=== PATIENT | male | born 1975 | race African-American/Black ===

== ENCOUNTER 2016-09-02 04:21 | Emergency (ER) | payer OTHER ==
[~2016-09-02] VITALS: Ht 182.9 cm; Wt 97.5 kg
[~2016-09-02 04:21] MED LIST: FLEXERIL10 MG PO; MOTRIN800 MG PO
--- NOTE | 2016-09-02 04:40 | ED CARDIAC/CP/PALPITATIONS ---
History of Present Illness General Chief Complaint: Chest Pain Stated Complaint: CHEST PAIN Source: patient Exam Limitations: no limitations Vital Signs & Intake/Output Vital Signs & Intake/Output Vital Signs Date Time Temp Pulse Resp B/P B/P Pulse O2 O2 Flow FiO2 Mean Ox Delivery Rate 09/02 0958 98.0 70 20 133/88 97 Room Air 09/02 0736 97.1 70 20 134/87 96 Room Air 09/02 0435 98 Room Air 09/02 0434 96.5 75 18 150/96 98 Room Air Allergies Coded Allergies: No Known Allergies (09/02/16) Reconcile Medications No Known Home Medications Triage Note: to er 10 with c/o sharp chest pain on and off for 2 days, no other sx monitor sr Triage Nurses Notes Reviewed? yes HPI: Patient presents to the emergency room with intermittent substernal chest heaviness for the past and a half. Patient states the pain will come and last 5 -10 minutes and then go away on its own. There is no radiation. While he has the pain he rates it as a 6 out of 10 and then it goes away and it goes down to a 0 out of 10. There is no shortness of breath. There is no nausea or vomiting. There is no diaphoresis. There are no aggravating or mitigating factors. Patient had the pain again tonight so he comes in for evaluation. (NIMCO BLACKWELL,ELOINA Silvestre) Past History Travel History Traveled to [place] past 21 day No Medical History Any Pertinent Medical History? none Neurological: NONE EENT: NONE Cardiovascular: NONE Respiratory: NONE Gastrointestinal: NONE Hepatic: NONE Renal: NONE Musculoskeletal: NONE Psychiatric: NONE Endocrine: NONE Blood Disorders: NONE Cancer(s): NONE Surgical History Surgical History: non-contributory Psychosocial History What is your primary language Croatian Tobacco Use: Never used ETOH Use: occasional use Illicit Drug Use: denies illicit drug use Family History Hx Contributory? No (NIMCO BLACKWELL,ELOINA Silvestre) Review of Systems Review of Systems Constitutional: Reports: no symptoms. EENTM: Reports: no symptoms. Respiratory: Reports: no symptoms. Cardiovascular: Reports: see HPI, chest pain. GI: Reports: no symptoms. Genitourinary: Reports: no symptoms. Musculoskeletal: Reports: no symptoms. Skin: Reports: no symptoms. Neurological/Psychological: Reports: no symptoms. Hematologic/Endocrine: Reports: no symptoms. Immunologic/Allergic: Reports: no symptoms. All Other Systems: Reviewed and Negative (NIMCO BLACKWELL,ELOINA Silvestre) Physical Exam Physical Exam General Appearance: well developed/nourished, alert, awake, anxious, mild distress Head: atraumatic Eyes: Bilateral: PERRL, EOMI. Ears, Nose, Throat: normal pharynx, normal ENT inspection, hearing grossly normal Neck: normal inspection, supple, full range of motion Respiratory: normal breath sounds, chest non-tender, no respiratory distress, lungs clear Cardiovascular: regular rate/rhythm, normal peripheral pulses Gastrointestinal: normal bowel sounds, soft, non-tender, no organomegaly Back: normal inspection, normal range of motion Extremities: normal inspection, normal capillary refill, normal range of motion, no edema Neurologic/Psych: no motor/sensory deficits, awake, alert, oriented x 3, normal gait, normal mood/affect Skin: intact, normal color, warm/dry Lymphatic: no anterior cervical jorge Core Measures ACS in differential dx? No Severe Sepsis Present: No Septic Shock Present: No (NIMCO BLACKWELL,ELOINA Silvestre) Progress Differential Diagnosis: AMI, atrial fibrillation, costochondritis, musculoskeletal pain, myocarditis, pancreatitis, pneumonia, pneumothorax, pulmonary embolism Plan of Care: Orders Procedure Date/time Status Heart Healthy Diet 09/02 B Active TROPONIN LEVEL 09/02 09 Complete EKG 09/02 09 Active Telemetry/Scada Engineer 09/02 436 Active TROPONIN LEVEL 09/02 436 Complete COMPREHENSIVE METABOLIC PANEL 09/02 436 Complete CBC WITHOUT DIFFERENTIAL 09/02 436 Complete EKG 09/02 0423 Active Laboratory Tests 09/02/16 0902: Troponin I < 0.01 09/02/16 0458: Anion Gap 10, Estimated GFR > 60, BUN/Creatinine Ratio 9.0, Glucose 109 H, Calcium 9.2, Total Bilirubin 0.7, AST 31, ALT 45, Alkaline Phosphatase 62, Troponin I < 0.01, Total Protein 7.2, Albumin 4.3, Globulin 2.9, Albumin/ Globulin Ratio 1.5, CBC w Diff NO MAN DIFF REQ, RBC 4.73, MCV 85.0, MCH 27.5, RDW 13.3, MPV 9.4, Gran % 41.5 L, Lymphocytes % 47.5, Monocytes % 9.0, Eosinophils % 1.5, Basophils % 0.5, Absolute Granulocytes 1.9, Absolute Lymphocytes 2.2, Absolute Monocytes 0.4, Absolute Eosinophils 0.1, Absolute Basophils 0, PUBS MCHC 32.3 L 7:10 AM PATIENT SIGNED OUT TO ME BY DR RINALDI. PENDING CARDIOLOGY EVALUATION. 10:14 am troponin repeat negative. pending cardiology evaluation in the ED by Dr. Aviles. 09/02/2016 10:40:52 AM Patient seen and evaluated by Dr. Tyson Aviles in the emergency department. Cardiac work up is negative. He feels that he is safe to follow up with his own primary care doctor in the office. No recent follow-up with Dr. Aviles in the office at this time. (AUSTIN HERRERA MD) Initial ED EKG: NSR, nonspecific ST T wave chg Prior EKG: unchanged Hand-Off Endorsed To: AUSTIN HERRERA MD Endorsed Time: 0700 Pending: labs Comments: Discussed with Dr. Aviles. He will consult on the patient. (ELOINA RINALDI MD) Repeat EKG: unchanged (AUSTIN HERRERA MD) Departure Departure Condition: Stable Clinical Impression Primary Impression: Chest pain Qualifiers: Chest pain type: other chest pain Qualified Code: R07.89 - Other chest pain Referrals: NORMA AGGARWAL DO (PCP/Family) Departure Forms: Customer Survey General Discharge Information Prescriptions: Current Visit Scripts No Known Home Medications (ELOINA RINALDI MD) Departure Time of Disposition: 1040 Disposition: HOME OR SELF CARE Additional Instructions: Please follow-up with your primary care doctor in the office. Return to the ER for any changing or worsening symptoms. (AUSTIN HERRERA MD) Critical Care Note Critical Care Note Critical Care Time: non-applicable (ELOINA RINALDI MD)
[2016-09-02 05:06] LABS: ABSOLUTE BASOPHIL COUNT 0 /CUMM (0.0-0.2); ABSOLUTE EOSINOPHIL COUNT 0.1 /CUMM (0.0-0.7); ABSOLUTE GRANULOCYTE CT 1.9 /CUMM (1.4-6.5); ABSOLUTE LYMPH COUNT 2.2 /CUMM (1.2-3.4); ABSOLUTE MONOCYTE COUNT 0.4 /CUMM (0.10-0.60); BASOPHIL % 0.5 % (0.0-2.0); EOSINOPHIL % 1.5 % (0-5); GRANULOCYTE % 41.5 % (42.2-75.2); HEMATOCRIT 40.2 % (42-52); MEAN CORPUSCULAR HGB 27.5 PG (27.0-31.0); MEAN CORPUSCULAR HGB CONC 32.3 G/DL (33.0-37.0); MEAN PLATELET VOLUME 9.4 FL (7.4-10.4); PLATELET COUNT 173 /CUMM (130-400); RBC DISTRIBUTION WIDTH 13.3 % (11.5-14.5); RED BLOOD CELL CT 4.73 /CUMM (4.70-6.10); WHITE BLOOD CELL COUNT 4.6 /CUMM (4.8-10.8)
[2016-09-02 09:58] VITALS: BP 133/88
--- NOTE | 2016-09-02 10:53 | Cons- Cardiology ---
General Information and HPI Consulting Request Date of Consult: 09/02/16 Requested By: Michelle Green MD Reason for Consult: Chest pain Source of Information: patient, old records Exam Limitations: no limitations History of Present Illness: The patient is a 40-year-old -[place] male who presents to the emergency room with brief sharp midsternal chest pains. He has had these symptoms for about 2 days. He states he has pains in the sternal area that are sharp and lasts 2 or 3 minutes and do not radiate. They have no relationship to his activities, respiration etc. There are no exacerbating or relieving factors. He has no associated shortness of breath, diaphoresis, dizziness, syncope. He is very active normally and plays a lot of sports without chest pain on exertion or shortness of breath. He is a nonsmoker. He is not hypertensive. He takes no medications. He has been here for a few hours and has had 2 normal EKGs and 2 negative troponins. The rest of his lab work is normal. Allergies/Medications Allergies: Coded Allergies: No Known Allergies (09/02/16) Home Med List: No Known Home Medications Review of Systems Review of Systems: He has no other complaints on the review of systems. Past History Travel History Traveled to [place] past 21 day No Medical History Neurological: NONE EENT: NONE Cardiovascular: NONE Respiratory: NONE Gastrointestinal: NONE Hepatic: NONE Renal: NONE Musculoskeletal: NONE Psychiatric: NONE Endocrine: NONE Blood Disorders: NONE Cancer(s): NONE Surgical History Surgical History: non-contributory Psychosocial History ETOH Use: occasional use Illicit Drug Use: denies illicit drug use Exam & Diagnostic Data Vital Signs and I&O Vital Signs Date Time Temp Pulse Resp B/P B/P Pulse O2 O2 Flow FiO2 Mean Ox Delivery Rate 09/02 0958 98.0 70 20 133/88 97 Room Air 09/02 0736 97.1 70 20 134/87 96 Room Air 09/02 0435 98 Room Air 09/02 0434 96.5 75 18 150/96 98 Room Air Intake & Output 09/02 1600 09/02 0800 06/ 0000 06/05 1600 09/01 0800 09/01 0000 Intake Total Output Total Balance Patient 215 lb Weight Weight Reported by Patient Measurement Method Physical Exam: Well-developed well-nourished -[place] male in no acute distress HEENT exam normal Neck veins not distended Carotids normal without bruits Chest clear Heart regular rhythm, no murmurs, gallops or rubs Extremities good pulses no edema Labs/Mikael Results: Laboratory Tests 09/02 09/02 0902 0458 Chemistry Sodium (137 - 145 mmol/L) 141 Potassium (3.5 - 5.1 mmol/L) 3.7 Chloride (98 - 107 mmol/L) 100 Carbon Dioxide (22 - 30 mmol/L) 31 H Anion Gap (5 - 16) 10 BUN (9 - 20 mg/dL) 9 Creatinine (0.7 - 1.2 mg/dL) 1.0 Estimated GFR (>60 ml/min) > 60 BUN/Creatinine Ratio (7 - 25 %) 9.0 Glucose (65 - 99 mg/dL) 109 H Calcium (8.4 - 10.2 mg/dL) 9.2 Total Bilirubin (0.2 - 1.3 mg/dL) 0.7 AST (17 - 59 U/L) 31 ALT (21 - 72 U/L) 45 Alkaline Phosphatase (< 127 U/L) 62 Troponin I (<0.11 ng/ml) < 0.01 < 0.01 Total Protein (6.3 - 8.2 g/dL) 7.2 Albumin (3.5 - 5.0 g/dL) 4.3 Globulin (1.9 - 4.2 gm/dL) 2.9 Albumin/Globulin Ratio (1.1 - 2.2 %) 1.5 Hematology CBC w Diff NO MAN DIFF REQ WBC (4.8 - 10.8 /CUMM) 4.6 L RBC (4.70 - 6.10 /CUMM) 4.73 Hgb (14.0 - 18.0 G/DL) 13.0 L Hct (42 - 52 %) 40.2 L MCV (80.0 - 94.0 FL) 85.0 MCH (27.0 - 31.0 PG) 27.5 RDW (11.5 - 14.5 %) 13.3 Plt Count (130 - 400 /CUMM) 173 MPV (7.4 - 10.4 FL) 9.4 Gran % (42.2 - 75.2 %) 41.5 L Lymphocytes % (20.5 - 51.1 %) 47.5 Monocytes % (1.7 - 9.3 %) 9.0 Eosinophils % (0 - 5 %) 1.5 Basophils % (0.0 - 2.0 %) 0.5 Absolute Granulocytes (1.4 - 6.5 /CUMM) 1.9 Absolute Lymphocytes (1.2 - 3.4 /CUMM) 2.2 Absolute Monocytes (0.10 - 0.60 /CUMM) 0.4 Absolute Eosinophils (0.0 - 0.7 /CUMM) 0.1 Absolute Basophils (0.0 - 0.2 /CUMM) 0 PUBS MCHC (33.0 - 37.0 G/DL) 32.3 L Diagnostic Data EKG Results 2 EKGs were done. Both show sinus rhythm at a rate of 65-70. The EKGs are within normal limits. They are similar to a previous EKG from 2005. CXR Results Not done Assessment/Plan Assessment/Plan This is a 40-year-old -[place] male with very atypical chest pains. They have lasted for 2 days off and on. They are nonexertional. They are quite brief. His cardiac workup is negative. His examination and labs are normal. I think the chest pains are musculoskeletal in nature. I don't think any further cardiac workup is indicated at this time. He is aware that if the pain becomes more typical, stronger or becomes exertional he should return. Otherwise he can follow up with his primary care team. Copies To: NORMA AGGARWAL DO Consult Acknowledgment - Thank you for your consult request.
== END 2016-09-02 10:45 ==
LOC: ERH 04:21
PROVIDERS: Emergency Medicine
DX: R07.2 Precordial pain (principal)
CPT/HCPCS: 93005; 93010